=== PATIENT | female | born 1990 | race Hispanic/Latino ===

== ENCOUNTER → 2016-07-16 | Outpatient (CLI) | payer OTHER | END | disposition home or self-care (01) | LOC: LAB.O 16:26 | PROVIDERS: ATTEND Obstetrics & Gynecology | DX: Z34.82 Encounter for supervision of other normal pregnancy, second trimester (principal); Z3A.18 18 weeks gestation of pregnancy ==

== ENCOUNTER → 2016-09-22 | Outpatient (CLI) | payer OTHER | END | disposition home or self-care (01) | LOC: LAB.O 11:07 | PROVIDERS: ATTEND Obstetrics & Gynecology | DX: L56.8 Other specified acute skin changes due to ultraviolet radiation (principal); Z3A.27 27 weeks gestation of pregnancy ==

== ENCOUNTER → 2016-11-12 | Outpatient (CLI) | payer MEDICAID | LOC: LAB.O 09:14 | PROVIDERS: ATTEND Obstetrics & Gynecology | DX: Z34.83 Encounter for supervision of other normal pregnancy, third trimester (principal); Z3A.35 35 weeks gestation of pregnancy ==

== ENCOUNTER 2019-11-21 01:08 | Emergency (ER) | payer SELFPAY ==
[2019-11-21 01:33] VITALS: BP 99/72; TEMP 98.9; O2SAT 96
[2019-11-21] MEDS ORDERED: ACETAMINOPHEN 500 MG TAB PO ONE (01:54)
--- NOTE | 2019-11-21 01:56 | ED.PDOC ---
History of Present Illness - General Chief Complaint: Fever Stated Complaint: fever, sore throat Time Seen by Provider: 11/21/19 01:48 Source: patient Exam Limitations: no limitations Additional Information: The patient is a 29F @ 30wks with no other significant past medical history who present to the ED complaining of sore throat, fever at home, headache and body aches. She has been sick since today. No recent travel or known sick contacts. No known COVID exposure. She states that she is unsure of what to take because she is . No shortness of breath, cough, diarrhea, vomiting, changes to taste/smell, or other complaints at this time. 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 Denies: cough, short of breath Cardiology: Denies: chest pain, palpitations Genitourinary: Denies: dysuria, frequency, hematuria Musculoskeletal: States: muscle pain. Denies: back pain, muscle stiffness, neck pain Skin: Denies: rash Neurological: States: no symptoms reported Endocrine: States: no symptoms reported All other Systems: Reviewed and Negative Past Medical History (General) - Patient Medical History Hx Asthma: No Hx Cardiac Disorders: No Hx Diabetes: No Hx Gastroesophageal Reflux: No Surgical History: no surgical history - Vaccination History Hx Tetanus, Diphtheria Vaccination: Yes - 2019 Hx Influenza Vaccination: Yes - 2019 - Social History Hx Tobacco Use: No Hx Alcohol Use: No Hx Substance Use Treatment: No Hx Depression: No - Female History Patient is a Female of Child Bearing Age (10 -59 yrs old): Yes Hx Last Menstrual Period: 04/07/19 Patient : Yes - 32wks Expected Date of Delivery:: 01/16/20 Family Medical History - Family History Mother Family History: Unknown Physical Exam - Physical Exam General Appearance: No apparent distress ENT Exam: normal ENT inspection Neck: non-tender, full range of motion Respiratory: no respiratory distress, no accessory muscle use Cardiovascular/Chest: tachycardia Gastrointestinal/Abdominal: other - Gravid Extremity: normal range of motion, non-tender, normal inspection Neurologic: no motor/sensory deficits, alert, normal mood/affect, oriented x 3 Skin Exam: normal color Progress - Progress Progress: 11/21/19 01:57 The patient is 29, with headache, pharyngitis, body aches. Rapid strep is negative, throat culture is pending. Will perform viral panel due to concern for possible COVID. Recommended tylenol and symptomatic treatment. Discussed home care and importance of isolation/quarantine due to ongoing pandemic. She will need to follow up with her [facility] as an outpatient. Home care instructions and return indications reviewed. Departure - Departure Clinical Impression: Pharyngitis Qualifiers: Pharyngitis/tonsillitis etiology: unspecified etiology Qualified Code(s): J02.9 - Acute pharyngitis, unspecified Time of Disposition: 01:59 Disposition: Discharge to Home or Self Care Condition: Fair Departure Forms: ED Discharge - Pt. Copy, Patient Portal Self Enrollment Instructions: DI for Ear Pain-Adult, Sore Throat, Adult (DC) Diet: resume usual diet Activity: increase activity as tolerated Referrals: Hi Mayes MD [Primary Care Provider] - 1-2 Weeks Additional Instructions: For your fever, you may take 1000 mg of Tylenol every 6 hours. For sore throat, you may use chloraseptic spray/lozenges, salt water gargles, water/honey. Your rapid strep test is negative, a culture is pending and will result in a few days. If your test is positive and you require antibiotics we will contact you by phone. You have been tested for COVID-19. It is important to remain under home quarantine for 10 days and until asymptomatic for 2 days (no fever) whichever is longer. It is important to remain under quarantine even if your COVID test is negative. If your result is positive, we will contact you by phone. You need to follow up with your [facility] in a week. Return to the Emergency Department with any worsening of your symptoms, questions, problems, or concerns.
== END 2019-11-21 02:09 | disposition home or self-care (01) ==
LOC: ER 01:08
DX: O98.813 Other maternal infectious and parasitic diseases complicating pregnancy, third trimester (principal); J02.9 Acute pharyngitis, unspecified; Z3A.30 30 weeks gestation of pregnancy; Z20.828 Contact with and (suspected) exposure to other viral communicable diseases